=== PATIENT | female | born 1995 | race Caucasian/White ===

== ENCOUNTER 2025-01-04 13:48 | Emergency (ER) | payer MEDICAID ==
[~2025-01-04] VITALS: Ht 157.5 cm; Wt 89.4 kg
[2025-01-04 13:53] VITALS: PULSE 96
[2025-01-04 14:18] LABS: LEUKOCYTE ESTERASE ,URINE NEGATIVE (Neg); NITRITES, URINE NEGATIVE (Neg); OCCULT BLOOD,URINE MODERATE (Neg)
[2025-01-04 14:19] LABS: UA COLLECTION TYPE CLN CATCH MIDSTREAM
[2025-01-04 14:20] LABS: URINE HCG POSITIVE (NEG)
[2025-01-04 14:23] LABS: MUCUS STRANDS NONE SEEN /LPF (Neg); SQUAMOUS EPITHELIAL CELL,UR NONE SEEN /LPF (FEW)
[2025-01-04 16:00] LABS: MEAN PLATELET VOLUME 7.7 FL (7.4-10.4); RED CELL DISTRIBUTION WIDTH 14.5 % (11.5-14.5)
[2025-01-04 16:17] LABS: CREATININE 0.55 MG/DL (0.40-0.90); TOTAL CARBON DIOXIDE 25.6 MMOL/L (24-32); eCRCL 122 ML/MIN; eGFR > 90 ML/MIN
--- NOTE | 2025-01-04 17:00 | Physician Documentation ---
History of Present Illness ~ Chief Complaint: Blood in Urine Stated Complaint: SPOTTING 6WKS Time Seen by MD: 14:25 HPI Patient is a very pleasant 29-year-old female that presents to the emergency department for evaluation of vaginal bleeding. Patient reports that he amounts of bleeding is currently describes as spotting. Patient reports it is use she is 6 weeks . Patient denies any abdominal cramping any fever chills nausea vomiting diarrhea at this time. Patient reports 2 previous pregnancies resulting in live births no complications during this . Patient denies any previous episodes of miscarriage or . No other symptoms reported at this time. Medication Reconciliation Allergies: Coded Allergies: No Known Allergies (Unverified , 01/04/25) Review of Systems ROS As stated above in the HPI, otherwise all systems are reviewed and negative. Physical Exam Vital Signs: Temperature: 97.2, Source: Temporal, Heart Rate: 96, Respiratory Rate: 18, BP: 123/78, Pulse Oximetry: 99, Weight: 89.400 Oxygen Flow Rate: 0 Physical Exam VITALS: Reviewed and as above. GENERAL: Alert, no apparent distress. HEENT: Normocephalic, atraumatic, PERRL, EOMI, dry mucosa, no erythema GI: Soft, non-tender, bowels sounds present, no rebound, guarding, or rigidity BACK: No CVA tenderness, or swelling MUSCULOSKELETAL No deformities, no edema SKIN: Warm and dry, no rash NEURO: Oriented x4, No motor or sensory deficit PSYCH: Normal mood and affect, no agitation Progress Results/Orders Results/Orders Completed Orders - CIRA BROWN Hcg Serum Qt (01/04/25 15:12) Cbc/Diff (01/04/25 15:12) CMP (01/04/25 15:12) Vital Signs 01/04/25 13:53 Temp 97.2 Pulse 96 Resp 18 B/P (MAP) 123/78 Pulse Ox 99 O2 Flow Rate 0 Laboratory Tests Test 01/04/25 13:59 01/04/25 15:46 Urine Specimen Description Cln catch midstream Urine Color Straw Urine Clarity Clear Urine pH 7.0 Urine Specific [place] 1.010 Urine Protein Negative Urine Glucose (UA) Negative Urine Ketones Negative Urine Occult Blood Moderate H Urine Nitrite Negative Urine Bilirubin Negative Urine Urobilinogen 0.2 Urine Leukocyte Esterase Negative Urine RBC 0-2 Urine WBC 0-4 Urine Squamous Epithelial Cells None seen Urine Bacteria None seen Urine Mucus None seen Urine Culture Indicated Not ind Volume Urine Centrifuged 10 ml Urine HCG, Qualitative Positive Urine Comment White Blood Count 7.7 Red Blood Count 4.26 Hemoglobin 11.3 L Hematocrit 32.9 L Mean Corpuscular Volume 77.4 L Mean Corpuscular Hemoglobin 26.6 L Mean Corpuscular Hemoglobin Concent 34.4 Red Cell Distribution Width 14.5 Platelet Count 304 Mean Platelet Volume 7.7 Neutrophils (%) (Auto) 55.8 Lymphocytes (%) (Auto) 33.0 Monocytes (%) (Auto) 10.2 Eosinophils (%) (Auto) 0.7 Basophils (%) (Auto) 0.3 Neutrophils # (Auto) 4.3 Lymphocytes # (Auto) 2.6 Monocytes # (Auto) 0.8 Eosinophils # (Auto) 0.1 Basophils # (Auto) 0.0 CBC Comment Sodium Level 138 Potassium Level 3.8 Chloride Level 108 H Carbon Dioxide Level 25.6 Anion Gap 4 L Blood Urea Nitrogen 8 Creatinine 0.55 Estimated GFR/1.73 m2 > 90 BUN/Creatinine Ratio 14.5 Glucose Level 100 Calcium Level 8.3 L Total Bilirubin 0.2 Aspartate Amino Transf (AST/SGOT) 16 Alanine Aminotransferase (ALT/SGPT) 25 Alkaline Phosphatase 52 Total Protein 8.3 H Albumin 3.2 L Globulin 5.1 H Albumin/Globulin Ratio 0.6 L HCG Beta Subunit 275 Chemistry Comments Medical Decision Making Additional information obtaine: other Findings Medical Decision-Making (MDM): 29-year-old female at 6 weeks gestation presented with first trimester vaginal bleeding, described as spotting. She is hemodynamically stable, denies abdominal pain, cramping, fever, chills, nausea, vomiting, or diarrhea. No prior miscarriages or abortions; previous pregnancies were uncomplicated. On evaluation, beta-hCG was 275 mIU/mL. This value is below the discriminatory threshold for transvaginal ultrasound visualization of an intrauterine , and a single hCG measurement cannot reliably distinguish between a viable intrauterine , early loss, or ectopic . The absence of abdominal pain or heavy bleeding, and the presence of only spotting, lowers the immediate risk of ectopic or hemodynamic instability. Given the clinical stability and absence of concerning symptoms, expectant management with close outpatient follow-up is appropriate. The patient was educated on the importance of returning in 2 days for repeat beta-hCG testing to assess for appropriate interval rise (expected increase of at least 66% over 48 hours in a viable ). This approach allows for differentiation between a progressing intrauterine , early loss, or ectopic , as trends in serial hCG are more informative than a single value. The patient was counseled on strict return precautions, including worsening bleeding, onset of abdominal pain, dizziness, or syncope, which could indicate ectopic or hemodynamic compromise. She was also advised that, while first trimester bleeding increases the risk of miscarriage, many pregnancies w ith mild bleeding and no pain continue without complication. No interventions (e.g., progesterone supplementation) are indicated at this time, as she has no history of prior miscarriage and evidence supports benefit only in women with both early bleeding and recurrent loss. Plan: Discharge home with instructions for return in 2 days for repeat beta-hCG, and to seek immediate care for any new or worsening symptoms. Outpatient follow- up with REVIEW RN is recommended. Urinary Diff Dx:Considerations: Include: AAA, , Aortic dissection, Appendicitis, Bowel obstruction, Cholelithiasis, Choleangitis, DJD, Ectopic , Hepatitis, HNP, Impaction, Intrauterine , Musculoskeletal pain, Ovarian torsion, Pancreatitis, PID, Post-Op complication, Pyelonephritis, Renal failure, Strain, Urinary Obstruction, Urolithiasis, Urinary retention, UTI, Vaginitis, Other Genital Diff Dx:Considerations: Include: -Complete, - Incomplete, -Inevitable, Ablortion-Missed, -Threatened, Abruptio placentae, Bartholin abscess, Bartholin cyst, Blood loss anemia, Constipation, Cervicitis, Dsymenorrhea, Ectopic , Foreign body, Hormonal, Hidradenitis suppurativa, Intrauterine , Menorrhagia, Menometrorrhagia, Menstrual bleeding, Myomatous uterus, Perianal abscess, Physiologic discharge, Pinworms, PID, Placenta previa, , Precipitous Hct, Trauma, UTI, Vaginitis(osis)-Atrophic, Vaginitis, Vaginitis(osis)-Bacterial, Vaginitis(osis)- Candidal, Vaginitis(osis)-Contact, Vaginitis(osis)-Herpes, Vaginitis(osis)- Trich., Other Departure Disposition: 01 HOME / SELF CARE / HOMELESS Impression: Primary Impression: Abnormal vaginal bleeding Additional Impression: Condition: Stable Discharge Instructions: Hematuria, Adult, Vaginal Bleeding During , First Trimester Additional Instructions: You are being discharged today after evaluation for vaginal spotting during early (6 weeks). Your blood test showed a beta-hCG level of 275. What this means: Vaginal spotting is common in early . A single blood test cannot tell us for sure if your is progressing normally. Most women with mild bleeding and no pain continue their pregnancies, but there is a higher risk of miscarriage or ectopic (a outside the uterus). Next steps: You need to return in 2 days for another blood test. This will help us see if your hormone (hCG) is rising as expected. This is important to check if your is progressing or if there are signs of a problem. When to seek care: Please return to the emergency department immediately if you have any of the following: Heavy vaginal bleeding (soaking through a pad every hour) Abdominal pain or cramping Fever or chills Nausea or vomiting that does not stop Diarrhea Dizziness, fainting, or feeling very weak Any other symptoms that worry you What to expect: Mild spotting may continue for a few days. Rest as needed, but strict bed rest is not necessary. Avoid strenuous activity and sexual intercourse until you are re-evaluated. There is no proven benefit to taking progesterone or other medications unless you have a history of multiple miscarriages. Follow-up: Please keep your appointment for repeat blood testing in 2 days. This is very important for your care. If you have questions or new symptoms before then, contact your healthcare provider or return to the emergency department. If you have any questions or concerns, do not hesitate to ask your healthcare team. Referrals: NO PRIMARY CARE PROVIDER (PCP) Education Educated: Patient Educated regarding: diagnosis, treatment, need for follow up Signature Scribe Signature: A Attestation: Scribed for Cira Brown by MERNA Felton . 01/04/25 17:00 CIRA BROWN Jan 04, 2025 17:00
[2025-01-04 17:04] VITALS: BP 136/89; RESP 18; TEMP 97.2; O2SAT 99
== END 2025-01-04 17:08 | disposition home or self-care (01) ==
LOC: ER 13:49
DX: O20.9 Hemorrhage in early pregnancy, unspecified (principal); Z3A.01 Less than 8 weeks gestation of pregnancy
CPT/HCPCS: 36415; 80053; 81001; 81025; 84702; 85025; 99283; 99284